=== PATIENT | male | born 1985 | race Caucasian/White ===

== ENCOUNTER 2018-03-14 16:14 | Emergency (ER) | payer MEDICAID, SELFPAY ==
[2018-03-14 16:41] VITALS: BP 113/73; PULSE 91; RESP 18; TEMP 36.7; O2SAT 98
--- NOTE | 2018-03-14 16:54 | W.ED.GENAD ---
Discharge Plan Disposition Patient Disposition: HOME Condition: Good Discharge Details Chief Complaint: DentalOral Clinical Impression: Dental infection Primary Care Provider: Nicola Jeffers ED Provider: Josh Lai Home Meds and New Rx's Prescriptions: New azithromycin 250 mg tablet 250 mg PO DAILY Qty: 4 RF: 0 Continue hydrocodone-acetaminophen 1 EACH tablet 1 ea PO QID PRN Qty: 15 RF: 0 Discontinued penicillin V potassium 500 MG tablet 500 mg PO TID RF: 0 Discharge Instructions Additional Instructions: follow up with your dentist as scheduled if you have pain take 1000mg tylenol and 600mg ibuprofen every 6 hours if you have difficulty breathing or inability to swallow liquids return to the emergency department Discharge Data Discharge Physician: Josh Lai Medical Decision Making 32 yo male with hx of prior dental infections and has had numerous teeth extracted and is due to have remaining teeth extracted next week comes in with cc of right lower gum pain where he had prior extractions. Denies fevers, difficulty swallowing or breathing. HAs no abscess on exam and no pain over hyoid, no submandibular swelling and no restricted neck movements, no findings to indicated ludwigs, pharyngitis, rpa, sea captain, epiglotitis. Will start azithromycin (discussed at length normally pcn or clindamycin is indicated but he states azithromycin is the medicine he is always given and only one that treats his infections). HE has f/u next week with his dentist, return precautions given Differential Diagnosis abscess, pulpitis HPI General Mode of arrival: ambulatory. Date/Time Provider Initiated Documentation: 03/14/18 16:47. Limitations to Documentation: no limitations. Information obtained by: patient. History of Present Illness 32 year old M presents to the emergency department with the chief complaint of right lower gum pain, Patient started experiencing this day(s) (3) and it has been constant. No relieving factors improve symptom(s), No exacerbating factors reported . Patient did receive the following treatments prior to arrival, none Related Data Home Medications Medication Instructions Recorded Confirmed hydrocodone-acetaminophen 1 ea PO QID PRN #15 tablet 10/04/13 azithromycin 250 mg PO DAILY #4 tab 03/14/18 Previous Rx's Medication Instructions Recorded hydrocodone-acetaminophen 1 ea PO QID PRN #15 tablet 10/04/13 azithromycin 250 mg PO DAILY #4 tab 03/14/18 Allergies Allergy/AdvReac Type Severity Reaction Status Date / Time No Known Allergies Allergy Unverified 10/04/13 21:50 General Stated Complaint: DentalOral ABDOULAYE: 4 Review of Systems Review of Systems All systems reviewed & are unremarkable except as noted in HPI and below Constitutional Denies chills and Denies fever(s) Eyes Denies eye discharge ENT Denies nasal congestion Cardiovascular Denies dyspnea Respiratory Denies dyspnea Gastrointestinal Denies vomiting Musculoskeletal Denies joint swelling Integumentary/Breasts Denies rash Hematologic/Lymphatic Denies easy bleeding PFSH Social History Smoking/Tobacco Use Status: Current every day Exam Const General: no acute distress Orientation: alert HENMT Head: normal to inspection Ears: external ears normal General nose exam: external nose normal Mouth: moist mucous membranes Eyes General: appearance normal, both eyes and all related structures Neck Neck: normal visual inspection Resp Effort & Inspection: normal respiratory effort and able to speak in complete sentences Cardio Rate: regular rate Skin General skin exam: no rashes or lesions noted Neuro General: alert and oriented x3 Extrem General: normal to inspection Psych Mental Status: mental status grossly normal Course Vital Signs Temperature 36.7 C 03/14/18 16:41 Pulse 91 H 03/14/18 16:41 Respiratory Rate 18 03/14/18 16:41 Blood Pressure 113/73 03/14/18 16:41 Pulse Oximetry 98 03/14/18 16:41 Temperature 36.7 C 03/14/18 16:41 Temperature Source Temporal Artery Scan 03/14/18 16:41 Pulse 91 H 03/14/18 16:41 Respiratory Rate 18 03/14/18 16:41 Respiratory Effort Labored 03/14/18 16:46 Blood Pressure 113/73 03/14/18 16:41 Blood Pressure Position Sitting 03/14/18 16:41 Pulse Oximetry 98 03/14/18 16:41 Oxygen Delivery Method Room Air 03/14/18 16:41 Oxygen Flow Rate 0 03/14/18 16:41 Pain Level 10 03/14/18 16:41
--- NOTE | 2018-03-14 16:57 | ED.GENADUL_ITS ---
Discharge Plan Disposition Patient Disposition: HOME Condition: Good Discharge Details Chief Complaint: DentalOral Clinical Impression: Dental infection Primary Care Provider: Nicola Jeffers ED Provider: Josh Lai Home Meds and New Rx's Prescriptions: New azithromycin 250 mg tablet 250 mg PO DAILY Qty: 4 RF: 0 Continue hydrocodone-acetaminophen 1 EACH tablet 1 ea PO QID PRN Qty: 15 RF: 0 Discontinued penicillin V potassium 500 MG tablet 500 mg PO TID RF: 0 Discharge Instructions Additional Instructions: follow up with your dentist as scheduled if you have pain take 1000mg tylenol and 600mg ibuprofen every 6 hours if you have difficulty breathing or inability to swallow liquids return to the emergency department Discharge Data Discharge Physician: Josh Lai Medical Decision Making 32 yo male with hx of prior dental infections and has had numerous teeth extracted and is due to have remaining teeth extracted next week comes in with cc of right lower gum pain where he had prior extractions. Denies fevers, difficulty swallowing or breathing. HAs no abscess on exam and no pain over hyoid, no submandibular swelling and no restricted neck movements, no findings to indicated ludwigs, pharyngitis, rpa, correctional officer captain, epiglotitis. Will start azithromycin (discussed at length normally pcn or clindamycin is indicated but he states azithromycin is the medicine he is always given and only one that treats his infections). HE has f/u next week with his dentist, return precautions given Differential Diagnosis abscess, pulpitis HPI General Mode of arrival: ambulatory . Date/Time Provider Initiated Documentation: 03/14/18 16:47 . Limitations to Documentation: no limitations . Information obtained by: patient . History of Present Illness 32 year old M presents to the emergency department with the chief complaint of right lower gum pain, Patient started experiencing this day(s) (3) and it has been constant. No relieving factors improve symptom(s), No exacerbating factors reported . Patient did receive the following treatments prior to arrival, none Related Data Home Medications Medication Instructions Recorded Confirmed hydrocodone-acetaminophen 1 ea PO QID PRN #15 tablet 10/04/13 azithromycin 250 mg PO DAILY #4 tab 03/14/18 Previous Rx's Medication Instructions Recorded hydrocodone-acetaminophen 1 ea PO QID PRN #15 tablet 10/04/13 azithromycin 250 mg PO DAILY #4 tab 03/14/18 Allergies Allergy/AdvReac Type Severity Reaction Status Date / Time No Known Allergies Allergy Unverified 10/04/13 21:50 General Stated Complaint: DentalOral ABDOULAYE: 4 Review of Systems Review of Systems All systems reviewed & are unremarkable except as noted in HPI and below Constitutional Denies chills and Denies fever(s) Eyes Denies eye discharge ENT Denies nasal congestion Cardiovascular Denies dyspnea Respiratory Denies dyspnea Gastrointestinal Denies vomiting Musculoskeletal Denies joint swelling Integumentary/Breasts Denies rash Hematologic/Lymphatic Denies easy bleeding PFSH Social History Smoking/Tobacco Use Status: Current every day Exam Const General: no acute distress Orientation: alert HENMT Head: normal to inspection Ears: external ears normal General nose exam: external nose normal Mouth: moist mucous membranes Eyes General: appearance normal, both eyes and all related structures Neck Neck: normal visual inspection Resp Effort & Inspection: normal respiratory effort and able to speak in complete sentences Cardio Rate: regular rate Skin General skin exam: no rashes or lesions noted Neuro General: alert and oriented x3 Extrem General: normal to inspection Psych Mental Status: mental status grossly normal Course Vital Signs Temperature 36.7 C 03/14/18 16:41 Pulse 91 H 03/14/18 16:41 Respiratory Rate 18 03/14/18 16:41 Blood Pressure 113/73 03/14/18 16:41 Pulse Oximetry 98 03/14/18 16:41 Temperature 36.7 C 03/14/18 16:41 Temperature Source Temporal Artery Scan 03/14/18 16:41 Pulse 91 H 03/14/18 16:41 Respiratory Rate 18 03/14/18 16:41 Respiratory Effort Labored 03/14/18 16:46 Blood Pressure 113/73 03/14/18 16:41 Blood Pressure Position Sitting 03/14/18 16:41 Pulse Oximetry 98 03/14/18 16:41 Oxygen Delivery Method Room Air 03/14/18 16:41 Oxygen Flow Rate 0 03/14/18 16:41 Pain Level 10 03/14/18 16:41
[2018-03-14] MEDS: Azithromycin 250 MG TAB 500 MG PO (17:15)
== END 2018-03-14 17:16 | disposition home or self-care (01) ==
LOC: ER 17:30
PROVIDERS: Emergency Provider Emergency Medicine; PCP Family Medicine
DX: K04.7 Periapical abscess without sinus (principal)
CPT/HCPCS: 99283

== ENCOUNTER 2020-06-11 17:34 | Emergency (ER) | payer MEDICAID, SELFPAY ==
[2020-06-11 17:39] VITALS: BP 141/83; PULSE 105; TEMP 36.6; O2SAT 99
--- NOTE | 2020-06-11 17:49 | ED.GENADUL_ITS ---
Discharge Plan Disposition Patient Disposition: HOME Condition: Stable Discharge Details Clinical Impression: Pain in testicle Primary Care Provider: Nicola Jeffers ED Provider: Suzanna Gambino Home Meds and New Rx's Prescriptions: New doxycycline hyclate 100 mg tablet 100 mg PO BID Qty: 14 RF: 0 Continued methadone 10 mg/mL Syringe 110 mg PO DAILY RF: 0 Discharge Instructions Instructions: Epididymitis (ED) Additional Instructions: As your pain is the same as when you have had epididymitis historically, we will treat you for the same once again. This time, please take the entire course of your antibiotics. You received 500 mg of ceftriaxone here. Please take the 1 week of doxycycline as prescribed. I have also ordered an outpatient ultrasound. Please call tomorrow morning to schedule your ultrasound appointment. As you are unable to urinate today, I would also like for you to bring in a sample for further testing. Please bring in a sample from the first urination of the day. Please catch the first bit of urine that comes out of your penis and only fill to the line drawn. Please also contact your primary care to schedule follow-up appointment next week. If you develop fever/chills, increased pain, difficulty urinating, increased abdominal pain or other new/worsening symptoms please seek care urgently once again. Referrals: Nicola Jeffers [Primary Care Provider] - Discharge Data Discharge Date/Time-TO BE ENTERED AT DEPARTURE: 06/11/20 18:41 Medical Decision Making Patient is a pleasant 35-year-old gentleman presenting today with chief complaint of testicular discomfort. He reports that last summer he was diagnosed with epididymitis and was prescribed antibiotics. He reports that after having an IM injection of antibiotics and oral antibiotics he did feel much improved. However, he reports he did not finish at least half of the oral antibiotics. He states that since that time he has had some intermittent discomfort that feels similar but is been much more pronounced recently. He s tates the pain is primarily in the posterior aspect of the right testicle. He reports that when pain is maximal, such as when there is any type of pressure applied to the posterior aspect of his, the pain can radiate up into the right side of his groin and lower abdomen. He denies any nausea vomiting. Denies any dysuria, hematuria, increased frequency urgency. No change in bowel habits. States that this discomfort has limited him sexually recently. Denies any penile discharge. No new sexual contacts. His significant other was tested last summer when treated appropriately. On exam, patient has tenderness in the posterior aspect of the right testicle. Not appreciate any swelling. He has normal cremasteric reflex. He has no abdominal discomfort. No evidence to suggest incarcerated hernia. His exam and history is not consistent with testicular torsion. He is maximally tenderness posteriorly over the epididymis. Patient I discussed laboratory evaluation, ultrasound. He is declining this at this time. Prefer to be treated solely on his symptoms and his history. He is unable to give us a urinary sample today. He and I discussed risks associated with this not being diagnosed appropriately and that he will need follow-up closely to complete his evaluation that would have otherwise been performed today. He voiced understanding. Will treat based on the new CDC guidelines and will give 500 mg IM ceftriaxone as well as 1 week of doxycycline. Patient was given first dosing here. Ordered outpatient ultrasound. Have also requested dirty urine test for GC and chlamydia. Not see any evidence of herpes today. No findings suggest syphilis. Strict return precautions were discussed. I encouraged that he take the full course of antibiotic. All of his questions and concerns were addressed and he is in agreement with this plan. HPI General Mode of arrival: ambulatory . Date/Time Provider Initiated Documentation: 06/11/20 17:49 . Limitations to Documentation: no limitations . Information obtained by: patient and RN notes reviewed . History of Present Illness 35 year old M presents to the emergency department with the chief complaint of testicular pain, described as moderate and similar to prior episodes, with intensity rated at 4. Quality is described as aching, and is localized to the genitals and right. Patient abdomen (reports when pain is severe can radiate into his right lower abdomen). Patient started experiencing this week(s) (3) and it has been constant. Immobilization improves symptom(s), Movement worsens symptoms (pain maximal with pressure applied to posterior aspect of testicles) . Patient notes no other symptoms.. Patient did receive the following treatments prior to arrival, none Related Data Home Medications Medication Instructions Recorded Confirmed doxycycline hyclate 100 mg PO BID #14 tab 06/11/20 methadone 110 mg PO DAILY 06/11/20 06/11/20 Previous Rx's Medication Instructions Recorded doxycycline hyclate 100 mg PO BID #14 tab 06/11/20 Allergies Allergy/AdvReac Type Severity Reaction Status Date / Time No Known Allergies Allergy Unverified 06/11/20 17:43 General Stated Complaint: GenMedical ABDOULAYE: 3 Review of Systems Constitutional Constitutional: Reports as per HPI, Denies chills, Denies fatigue, Denies fever(s) and Denies headache(s) ENT Ears, Nose, Mouth, and Throat: Denies headache(s) Cardiovascular Cardiovascular: Reports as per HPI, Denies chest pain and Denies dyspnea Respiratory Respiratory: Reports as per HPI, Denies cough and Denies dyspnea Gastrointestinal Gastrointestinal: Reports as per HPI Genitourinary Genitourinary: Reports as per HPI, Denies hematuria, Denies oliguria, Denies difficulty urinating, Denies genital lesions, Denies dysuria, Reports scrotal swelling (reports feeling swollen in posterior right testicle), Denies testicular mass, Reports testicular pain, Denies urinary frequency, Denies urinary hesitancy and Denies urinary urgency Musculoskeletal Musculoskeletal: Reports as per HPI and Denies back pain Integumentary/Breasts Skin/Breast: Reports as per HPI and Denies rash Neurologic Neurologic: Reports as per HPI and Denies headache(s) Endocrine Endocrine: Denies fatigue [facility] Social History Smoking/Tobacco Use Status: Current every day Tobacco Type: cigarettes Smoking risk assessment performed?: Yes Alcohol Intake: never Drug use: Never Substance use type: does not use Do you feel safe at home: Yes Do you feel safe in your relationship?: Yes Exam Const General: cooperative, healthy appearing, comfortable, no acute distress and well developed Nutritional Appearance: average body habitus and well nourished Orientation: alert and awake [facility] Head: normal to inspection Mouth: moist mucous membranes Resp Effort & Inspection: normal respiratory effort, able to speak in complete sentences and no respiratory distress Auscultation: clear to auscultation bilaterally, no rales, no rhonchi and no wheezes Cardio Rate: regular rate Rhythm: regular rhythm Heart Sounds: S1 normal and S2 normal GI Inspection: normal to inspection, non-distended, no obesity, no visible herniation and no visible pulsation Palpation: soft, no hepatosplenomegaly, not firm, no guarding, no hernias, not rigid and nontender Percussion: normal to percussion Auscultation: normal bowel sounds Male General Exam: Yes normal external exam, No ecchymosis, No edema, No erythema, No hernia and No inguinal lymphadenopathy Penis: normal penis Meatus: meatus normal Scrotum: scrotum normal, cremasteric reflex present, no ecchymosis, not edematous, not erythematous, no hydroceles, no inguinal hernias, no masses and no scrotal swelling Testes: normal, testicular lie normal, epididymides normal, testicles not atrophic, no blue dot sign, not enlarged, no epididymal induration, no epidiymal masses, epididymal tenderness on the right, no masses, no testicular mass, no testicular swelling, no testicular tenderness, normal testicular lie and No testicular atrophy Back/Spine/Pelvis Back: no CVA tenderness Skin General skin exam: no rashes or lesions noted Trauma: no lacerations or abrasions Neuro General: patient alert and patient awake Cognition: normal cognition Speech: speech normal Gait: normal gait Psych Appearance: grossly normal and well kempt Mental Status: mental status grossly normal Speech and Movement: speech and movement normal Course Vital Signs Vital signs: Vital Signs Temperature 36.6 C 06/11/20 17:39 Pulse 105 H 06/11/20 17:39 Blood Pressure 141/83 H 06/11/20 17:39 Pulse Oximetry 99 06/11/20 17:39 Temperature 36.6 C 06/11/20 17:39 Temperature Source Temporal Artery Scan 06/11/20 17:39 Pulse 105 H 06/11/20 17:39 Respiratory Effort Non-Labored 06/11/20 17:42 Blood Pressure 141/83 H 06/11/20 17:39 Blood Pressure Position Sitting 06/11/20 17:39 Pulse Oximetry 99 06/11/20 17:39 Oxygen Delivery Method Room Air 06/11/20 17:39 Oxygen Flow Rate 0 06/11/20 17:39 Pain Level 4 06/11/20 17:39
[2020-06-11] MEDS: cefTRIAXone 500 MG VIAL IM (18:36)
== END 2020-06-11 18:41 | disposition home or self-care (01) ==
PROVIDERS: Emergency Provider Physician Assistant; PCP Family Medicine
DX: N50.811 Right testicular pain (principal)
CPT/HCPCS: 96372; 99284; 99283; J0696

== ENCOUNTER 2020-06-20 16:21 | Emergency (ER) | payer MEDICAID, SELFPAY ==
--- NOTE | 2020-06-20 16:56 | W.ED.GENAD ---
Discharge Plan Disposition Patient Disposition: HOME Condition: Stable Discharge Details Clinical Impression: Abdominal pain Primary Care Provider: Nicola Jeffers ED Provider: Fabiana Lazar Home Meds and New Rx's Prescriptions: New doxycycline hyclate 100 mg capsule 100 mg PO BID 10 Days Qty: 20 RF: 0 No Action methadone 10 mg/mL Syringe 110 mg PO DAILY RF: 0 Discharge Instructions Instructions: Abdominal Pain (ED) Additional Instructions: Follow up with primary care provider in 3-5 days. Return to ED sooner if any worsening or concerns. Increase oral fluids. Please return for any worsening pain. Problems urinating or any concerns. Take antibiotic as directed. Please call and make an appointment for the ultrasound as previously instructed. Stand Alone Forms: Work Release Referrals: Nicola Jeffers [Primary Care Provider] - Medical Decision Making Patient here with RLQ abd pain, seen here on 06-11-19 was given Ceftriaxone IM and 1 week of doxycycline. here requesting more antibiotics and shot of antibiotics. No n/v/d. Patient did not follow-up with ultrasound as previously instructed. He states he cannot give us a urine sample. Patient given prescription for doxycycline and I am injection of ceftriaxone. Discussed that I cannot rule out any other intra-abdominal pathology without further work-up which patient is declining at this time. Patient was not able to give us urine sample prior to being discharged. Instructed to follow-up with PCP and have ultrasound done as previously directed. HPI General Mode of arrival: ambulatory. Date/Time Provider Initiated Documentation: 06/20/20 16:53. Limitations to Documentation: no limitations. Information obtained by: patient. HPI Narrative: Patient here with RLQ abd pain, seen here on 06-11-19 was given Ceftriaxone IM and 1 week of doxycycline. here requesting more antibiotics and shot of antibiotics. No n/v/d. Patient did not follow-up with ultrasound as previously instructed. He states he cannot give us a urine sample. Related Data Home Medications Medication Instructions Recorded Confirmed methadone 110 mg PO DAILY 06/11/20 06/20/20 doxycycline hyclate 100 mg PO BID 10 Days #20 cap 06/20/20 Previous Rx's Medication Instructions Recorded doxycycline hyclate 100 mg PO BID 10 Days #20 cap 06/20/20 Allergies Allergy/AdvReac Type Severity Reaction Status Date / Time No Known Allergies Allergy Unverified 01/20/21 17:58 General ABDOULAYE: 3 Review of Systems Narrative: Constitutional: Negative for weight loss, alert and oriented, well groomed, normal body habitus, appears comfortable. HEENT: Denies trauma, headaches, blurry vision, nasal discharge, sore throat, trouble swallowing. Chest: Denies chest pain, palpitations, irregular rhythm, hypertension. Respiratory: Denies Shortness of breath, cough, hemoptysis. GI: Denies nausea, vomiting, diarrhea, constipation. Right lower quadrant abdominal pain. : Denies dysuria, hematuria, flank pain, rectal bleeding. History of epididymitis and testicle pain. Neuro: Denies dizziness, blurry vision, weakness, syncope, headache or facial numbness. Hematologic: Denies easy bruising, intolerance to heat or cold, hair loss. [facility] Social History Smoking/Tobacco Use Status: Current every day Tobacco Type: cigarettes Smoking risk assessment performed?: Yes Alcohol Intake: never Drug use: Never Substance use type: does not use Current gender identity: male Do you feel safe at home: Yes Do you feel safe in your relationship?: Yes Exam Narrative Exam Narrative: Constitutional: Alert and oriented x3. Appears stated age. Normal body habitus. Head: Normocephalic, no trauma. Eyes: Pupils PERRLA, Red reflex noted, EOM's intact. Eyelids symmetrical without lesions, discharge, or swelling. ENT: Bilateral TM's WNL, External ear normal to inspection, no mastoid TTP, swelling, or erythema, Nasal turbinates WNL, no nasal discharge. Normal dentition, Posterior pharynx WNL, no exudate. Chest: RRR, Normal S1, S2, distal pulses intact. Resp: Lungs clear to auscultation bilaterally, no wheezes, rales, or rhonchi. Abdomen: Soft, nondistended, nontender over McBurney's point, Musculoskeletal: Normal gait, 5/5 strength to all four extremities. Skin: No suspicious rashes or lesions. Capillary refill less than 2 sec. Neurologic: Cranial nerves II-XII intact. Alert and oriented x 3. DTR's intact. Hematologic/Lymphatic: No ecchymosis, no lymphadenopathy.
[2020-06-20 17:50] VITALS: BP 124/70; RESP 18; TEMP 36.9; O2SAT 95
[2020-06-20 18:00] VITALS: BP 119/66; PULSE 107; RESP 18; TEMP 37.1; O2SAT 96
[2020-06-20] MEDS: Doxycycline Hyclate 100 MG CAP PO (18:40)
[2020-06-20] MEDS: cefTRIAXone 500 MG VIAL IM (18:40)
[2020-06-20] MEDS: Doxycycline Hyclate 100 MG, 2 CAPS/BTL PO (18:48)
== END 2020-06-20 18:54 | disposition home or self-care (01) ==
PROVIDERS: Emergency Provider Registered Nurse Emergency; PCP Family Medicine
DX: R10.31 Right lower quadrant pain (principal)
CPT/HCPCS: 96372; 99284; 99283; J0696

== ENCOUNTER 2020-06-22 13:48 | Emergency (ER) | payer MEDICAID, SELFPAY ==
--- NOTE | 2020-06-22 13:45 | RT.EKG_ITS ---
APPROVED REPORT Exam: Resting ECG Patient Location: E HR:71 bpm ECG Measurements Heart Rate 71 AXIS NH 179 P 50 QRSd 106 QRS 78 QT 416 T 25 QTc 453 Conclusion Sinus rhythm...normal P axis, V-rate 60- 99 I have reviewed and interpreted ECG and agree with software generated interpretation. No stemi
[2020-06-22 13:53] VITALS: BP 134/86; PULSE 99; RESP 18; TEMP 36.6; O2SAT 99
--- NOTE | 2020-06-22 14:14 | W.ED.GENAD ---
Discharge Plan Disposition Patient Disposition: HOME Condition: Good Discharge Details Clinical Impression: Abdominal pain, epigastric Primary Care Provider: Nicola Jeffers ED Provider: Dianna Grimes Home Meds and New Rx's Prescriptions: New famotidine [Heartburn Relief (famotidine)] 20 mg tablet 20 mg PO DAILY Qty: 30 RF: 0 No Action methadone 10 mg/mL Syringe 110 mg PO DAILY RF: 0 doxycycline hyclate 100 mg capsule 100 mg PO BID 10 Days Qty: 20 RF: 0 Discharge Instructions Instructions: Epigastric Pain (ED) Additional Instructions: Bring your urine specimen to hospital lab as previously instructed Schedule your outpatient ultrasound Take Zantac for discomfort Instructions for taking doxycycline Return earlier with new or worsening complaints Stand Alone Forms: Work Release Discharge Data Discharge Date/Time-TO BE ENTERED AT DEPARTURE: 06/22/20 15:55 Medical Decision Making I considered pulmonary embolism, angina, pancreatitis, cholecystitis however patient's exam is benign, he has no new tenderness or current discomfort His troponin is negative and he has a heart score of 1 reassuring EKG without QTC conjugation rather than ischemia He was pain-free throughout this encounter in the entirety of the day He does not have any chest pain or shortness of breath He felt nauseous or vomiting Diagnostic labs are reassuring He will presents for his outpatient ultrasounds and present urinalysis He will continue on of antibiotics and return earlier should he have new or worsening complaints Symptoms are likely related to gastritis from his doxycycline He is instructed to eat food and take Zantac while on this medication He is given a threshold to return with a worsening complaints Is discharged home in stable condition with stable vital He is PERC negative His exam today does not warrant imaging His testicular pain has resolved reportedly Lab Data Lab results reviewed: Yes I reviewed the patient's lab results. ECG Data Attestation: I personally reviewed and interpreted this ECG (s) as follows: Interpretation: Please see attending EKG interpretation HPI 35-year-old gentleman presents with report of epigastric pain. Patient states he had been on doxycycline for the past 10 days for suspected epididymitis. He states that he is feeling improved in terms of his right testicular pain but reports some epigastric pain. He denies any chest pain or shortness of breath. He denies dizziness or weakness. He has never used IV drugs. He states he is not snorted heroin for the past year since he been on methadone. He denies any additional new medications. He is currently asymptomatic per patient. Was going to try taking Tums however he was concerned with combining this with doxycycline General Date/Time Provider Initiated Documentation: 06/22/20 13:56. Related Data Home Medications Medication Instructions Recorded Confirmed methadone 110 mg PO DAILY 06/11/20 06/22/20 doxycycline hyclate 100 mg PO BID 10 Days #20 cap 06/20/20 06/22/20 famotidine [Heartburn Relief 20 mg PO DAILY #30 tab 06/22/20 (famotidine)] Previous Rx's Medication Instructions Recorded doxycycline hyclate 100 mg PO BID 10 Days #20 cap 06/20/20 famotidine [Heartburn Relief 20 mg PO DAILY #30 tab 06/22/20 (famotidine)] Allergies Allergy/AdvReac Type Severity Reaction Status Date / Time No Known Allergies Allergy Unverified 06/22/20 13:58 General Stated Complaint: Chest Pain ABDOULAYE: 3 Review of Systems Narrative: Review of systems negative x7 aside from where indicated in HPI [facility] Social History Smoking/Tobacco Use Status: Current every day Tobacco Type: cigarettes Smoking risk assessment performed?: Yes Alcohol Intake: never Drug use: Never Substance use type: does not use Current gender identity: male Do you feel safe at home: Yes Do you feel safe in your relationship?: Yes Exam Const General: healthy appearing Chest Chest: normal inspection of the chest Resp Effort & Inspection: normal respiratory effort Auscultation: clear to auscultation bilaterally Cardio Rate: regular rate Rhythm: regular rhythm GI Inspection: normal to inspection Other: No tenderness with palpation in all 4 quadrants No abdominal bruit or pulsatile mass No CVA tenderness Skin General skin exam: no rashes or lesions noted Neuro General: patient alert Extrem Other: No calf tenderness or swelling Distal pulses intact Course Vital Signs Vital signs: Vital Signs Temperature 36.6 C 06/22/20 13:53 Pulse 99 H 06/22/20 13:53 Respiratory Rate 18 06/22/20 13:53 Blood Pressure 134/86 06/22/20 13:53 Pulse Oximetry 99 06/22/20 13:53 Temperature 36.6 C 06/22/20 13:53 Temperature Source Skin 06/22/20 13:53 Pulse 99 H 06/22/20 13:53 Respiratory Rate 18 06/22/20 13:53 Respiratory Effort Non-Labored 06/22/20 13:59 Blood Pressure 134/86 06/22/20 13:53 Blood Pressure Position Supine 06/22/20 13:53 Pulse Oximetry 99 06/22/20 13:53 Oxygen Delivery Method Room Air 06/22/20 13:53 Oxygen Flow Rate 0 06/22/20 13:53 Pain Level 2 06/22/20 13:53
[2020-06-22 14:25] LABS: Abs Immature Grans 0.05 10^3/uL (0.0-0.06); Absolute Basophil Count 0.07 10^3/uL (0.0-0.2); Absolute Eosinophil Count 0.28 10^3/uL (0.0-0.7); Absolute Lymphocyte Count 4.13 10^3/uL (1.2-3.4); Absolute Monocyte Count 0.79 10^3/uL (0.1-0.8); Absolute Neutrophil Count 3.99 10^3/uL (1.2-6.7); Basophils % 0.8; HCT 37.5 % (40.0-50.0); HGB 12.6 g/dL (13.5-17.5); Immature Grans % 0.5; Lymphocytes % 44.4; MCH 29.9 pg (27.0-33.0); MCHC 33.6 % (32.0-36.0); MCV 89.1 fL (80-95); MPV 9.6 fL (8.0-11.0); Monocytes % 8.5; Neutrophils % 42.8; Nucleated RBC 0 %; Platelet Count 217 10^3/uL (130-400); RBC 4.21 10^6/uL (4.36-5.78); RDW 13.3 % (11.8-14.1); RDW-SD 43.7 fL; WBC 9.31 10^3/uL (4.4-10.8)
[2020-06-22 14:45] VITALS: BP 122/74; PULSE 101; RESP 14
[2020-06-22 15:16] LABS: ALT 85 U/L (16-63); AST 37 U/L (15-37); Albumin 3.4 g/dL (3.4-5.0); Alkaline Phosphatase 99 U/L (46-116); Anion Gap 5.6 mmol/L (3-11); BUN 18 mg/dL (7-18); Bilirubin, Total 0.2 mg/dL (0.2-1.0); CO2 29.4 mmol/L (21.0-32.0); CREATININE 0.88 mg/dL (0.70-1.30); Calcium 8.5 mg/dL (8.5-10.1); Chloride 107 mmol/L (98-107); Glucose 115 mg/dL (74-106); Potassium 3.6 mmol/L (3.5-5.1); Sodium 142 mmol/L (136-145); Total Protein 6.7 g/dL (6.4-8.2); Troponin I < 0.05 ng/mL (<0.06)
[2020-06-22 15:23] LABS: Lipase 90 U/L (73-393)
[2020-06-22 15:54] VITALS: BP 133/82; PULSE 80; RESP 16; TEMP 36.6; O2SAT 95
[2020-06-23 08:15] LABS: Bilirubin Negative (Negative); Blood Negative (Negative); Clarity Clear (Clear); Glucose Negative (Negative); Ketones Negative (Negative); Leukocyte Esterase Negative (Negative); Nitrite Negative (Negative); Specific Gravity 1.025 (1.005-1.025); Urobilinogen 0.2 EU/dL (Up TO 0.2)
== END 2020-06-22 15:55 | disposition home or self-care (01) ==
PROVIDERS: Emergency Provider Physician Assistant; PCP Family Medicine
DX: R10.13 Epigastric pain (principal); T36.4X5A Adverse effect of tetracyclines, initial encounter
CPT/HCPCS: 36415; 80053; 83690; 93005; 99284; 81003; 84484; 85025; 93010

== ENCOUNTER 2020-07-10 10:48 | Outpatient (CLI) | payer MEDICAID, SELFPAY | END 2020-07-10 11:08 | PROVIDERS: PCP Family Medicine; Visit Provider Physician Assistant | DX: R69 Illness, unspecified (principal) ==

== ENCOUNTER 2020-08-02 16:43 | Emergency (ER) | payer MEDICAID, SELFPAY ==
[2020-08-02 16:56] VITALS: BP 121/73; PULSE 85; RESP 18; TEMP 36.6; O2SAT 98
--- NOTE | 2020-08-02 17:14 | W.ED.GENAD ---
Discharge Plan Disposition Patient Disposition: HOME Condition: Stable Discharge Details Clinical Impression: Pain in right testicle Primary Care Provider: Nicola Jeffers ED Provider: Fabiana Lazar Home Meds and New Rx's Prescriptions: Continued methadone 10 mg/mL Syringe 130 mg PO DAILY RF: 0 famotidine [Heartburn Relief (famotidine)] 20 mg tablet 20 mg PO DAILY Qty: 30 RF: 0 Discharge Instructions Instructions: Testicle Pain (ED) Additional Instructions: Today the urinalysis is largely within normal limits, you were tested for gonorrhea chlamydia will take 48 to 72 hours to return. The comes back positive and you need to be on an antibiotic we will call you. Please return for a scrotum ultrasound outpatient ultrasound was ordered. At this time there is no indication for you to be placed on antibiotics. Follow up with primary care provider in 3-5 days. Return to ED sooner if any worsening or concerns. Increase oral fluids. Please take Tylenol or Ibuprofen with food every 4-6 hours as needed for pain and swelling. Stand Alone Forms: Work Release Referrals: Nicola Jeffers [Primary Care Provider] - Medical Decision Making 35-year-old male presents to the ED with chief complaint of right testicle pain which radiates up into his right groin which has been on and off for over 1 to 2 months. He was seen in the ED couple times in June for similar complaint. He states that he has a past medical history of epididymitis and he is sure that this is what that is. He does have a primary care provider but has not seen her for this problem. He says that he was originally diagnosed with epididymitis at the [facility]. He denies any penile discharge, dysuria, penile lesions. He denies any nausea vomiting diarrhea or abdominal pain. Urinalysis and urine GC chlamydia ordered and discussed with patient, verbalized understanding of plan of care. At this time ultrasound is not available. No evidence of UTI at this time GC chlamydia is pending. Outpatient ultrasound ordered form and instructions given to patient who verbalizes understanding. At this time there is no indication for antibiotics I instructed patient to follow-up with his PCP to have the ultrasound completed. He remained hemodynamically stable, alert and oriented throughout stay. This text was generated using buySAFEation system, please disregard any oddities of phrase or misspellings. HPI General Mode of arrival: ambulatory. Date/Time Provider Initiated Documentation: 08/02/20 16:58. Limitations to Documentation: no limitations. Information obtained by: patient. HPI Narrative: 35-year-old male presents to the ED with chief complaint of right testicle pain which radiates up into his right groin which has been on and off for over 1 to 2 months. He was seen in the ED couple times in June for similar complaint. He states that he has a past medical history of epididymitis and he is sure that this is what that is. He does have a primary care provider but has not seen her for this problem. He says that he was originally diagnosed with epididymitis at the [facility]. He denies any penile discharge, dysuria, penile lesions. He denies any nausea vomiting diarrhea or abdominal pain. Related Data Home Medications Medication Instructions Recorded Confirmed methadone 130 mg PO DAILY 06/11/20 08/02/20 famotidine [Heartburn Relief 20 mg PO DAILY #30 tab 06/22/20 08/02/20 (famotidine)] Previous Rx's Medication Instructions Recorded famotidine [Heartburn Relief 20 mg PO DAILY #30 tab 06/22/20 (famotidine)] Allergies Allergy/AdvReac Type Severity Reaction Status Date / Time No Known Allergies Allergy Unverified 08/02/20 17:00 General Stated Complaint: Male Reproductive Problem ABDOULAYE: 4 Review of Systems Narrative: Constitutional: Negative for weight loss, alert and oriented, normal body habitus, appears comfortable. HEENT: Denies trauma, headaches, blurry vision, nasal discharge, sore throat, trouble swallowing. Chest: Denies chest pain, palpitations, irregular rhythm, hypertension. Respiratory: Denies Shortness of breath, cough, hemoptysis. GI: Denies abdominal pain, nausea, vomiting, diarrhea, constipation. : Denies dysuria, hematuria, flank pain, rectal bleeding. Reports right testicular pain and right groin pain. Neuro: Denies dizziness, blurry vision, weakness, syncope, headache or facial numbness. Hematologic: Denies easy bruising, intolerance to heat or cold, hair loss. [facility] Social History Smoking/Tobacco Use Status: Current every day Tobacco Type: cigarettes Smoking risk assessment performed?: Yes Alcohol Intake: never Drug use: Never Substance use type: does not use Current gender identity: male Do you feel safe at home: Yes Do you feel safe in your relationship?: Yes Exam Narrative Exam Narrative: Constitutional: Alert and oriented x3. Appears stated age. Normal body habitus. Head: Normocephalic, no trauma. Eyes: Pupils PERRLA, Red reflex noted, EOM's intact. Eyelids symmetrical without lesions, discharge, or swelling. ENT: Bilateral TM's WNL, External ear normal to inspection, no mastoid TTP, swelling, or erythema, Nasal turbinates WNL, no nasal discharge. Normal dentition, Posterior pharynx WNL, no exudate. Chest: RRR, Normal S1, S2, distal pulses intact. Resp: Lungs clear to auscultation bilaterally, no wheezes, rales, or rhonchi. Abdominal: Soft, nondistended, nontender to palpation all 4 quadrants. Genitourinary: No palpable inguinal hernia, right testicle is tender to palpation, no evidence of torsion, intact cremasteric reflex, no observable penile lesions or discharge at the meatus. Musculoskeletal: Normal gait, 5/5 strength to all four extremities. Skin: No suspicious rashes or lesions. Capillary refill less than 2 sec. Neurologic: Cranial nerves II-XII intact. Alert and oriented x 3. DTR's intact. Hematologic/Lymphatic: No ecchymosis, no lymphadenopathy. Course Vital Signs Vital signs: Vital Signs Temperature 36.6 C 08/02/20 16:56 Pulse 85 08/02/20 16:56 Respiratory Rate 18 08/02/20 16:56 Blood Pressure 121/73 08/02/20 16:56 Pulse Oximetry 98 08/02/20 16:56 Temperature 36.6 C 08/02/20 16:56 Temperature Source Temporal Artery Scan 08/02/20 16:56 Pulse 85 08/02/20 16:56 Respiratory Rate 18 08/02/20 16:56 Respiratory Effort Non-Labored 08/02/20 17:01 Blood Pressure 121/73 08/02/20 16:56 Pulse Oximetry 98 08/02/20 16:56 Oxygen Delivery Method Room Air 08/02/20 16:56 Oxygen Flow Rate 0 08/02/20 16:56 Pain Level 4 08/02/20 16:56
[2020-08-02 18:06] LABS: Bilirubin Negative (Negative); Blood Negative (Negative); Clarity Clear (Clear); Glucose Negative (Negative); Ketones Negative (Negative); Leukocyte Esterase Negative (Negative); Nitrite Negative (Negative); Specific Gravity 1.025 (1.005-1.025); Urobilinogen 0.2 EU/dL (Up TO 0.2)
[2020-08-06 15:26] LABS: Chlamydia Result Negative (Negative); GC Result Negative (Negative)
== END 2020-08-02 19:04 | disposition home or self-care (01) ==
PROVIDERS: Emergency Provider Registered Nurse Emergency; PCP Family Medicine
DX: N50.811 Right testicular pain (principal)
CPT/HCPCS: 87491; 87591; 99283; 81003; 99282

== ENCOUNTER 2020-08-06 02:09 | Outpatient (CLI) | payer MEDICAID, SELFPAY ==
--- NOTE | 2020-08-06 | DI.US_ITS ---
EXAM: US SCROTUM CLINICAL HISTORY: RT TESTICLE PAIN, ? EPIDIDIMYTIS. TECHNIQUE: Scrotal ultrasound performed using grayscale, color-flow and spectral Doppler analysis. COMPARISON: No exams were available for comparison FINDINGS: Right testicle: 3.6 x 2.3 x 3.1 cm Left testicle: 3.1 x 1.6 x 2.6 cm Echogenicity: Normal. Contour: Smooth. Mass: None seen. Microlithiasis: None. Hydrocele: Small bilateral hydroceles Variocele: None. Hernia: Small fatty containing right inguinal hernia with neck diameter of 1.5 cm. No peristalsing b owel loop identified. Epididymis: Left normal. 9 millimeter cyst in the head of the right epididymis. DOPPLER: Color: Symmetric and uniform, no hyperemia. Duplex: Bilateral testicular arterial waveforms visualized. IMPRESSION: Normal appearing bilateral testicles. Small bilateral hydroceles. Cyst in the head of the right epid idymis. No evidence of epididymitis. Question of small fatty containing right inguinal hernia. DATA REPOSITORY:
== END 2020-08-06 02:29 ==
PROVIDERS: PCP Family Medicine; Visit Provider Registered Nurse Emergency
DX: N50.811 Right testicular pain (principal); N50.3 Cyst of epididymis; N43.2 Other hydrocele; K40.90 Unilateral inguinal hernia, without obstruction or gangrene, not specified as recurrent
CPT/HCPCS: 76870

== ENCOUNTER 2020-08-15 11:09 | Emergency (ER) | payer MEDICAID, SELFPAY ==
--- NOTE | 2020-08-15 11:14 | W.ED.GENAD ---
Discharge Plan Disposition Patient Disposition: HOME Condition: Stable Discharge Details Clinical Impression: Abdominal pain, History of inguinal hernia Primary Care Provider: Nicola Jeffers ED Provider: Tram Sharma Home Meds and New Rx's Prescriptions: Continued methadone 10 mg/mL Syringe 130 mg PO DAILY RF: 0 Discharge Instructions Instructions: Inguinal Hernia (ED), Abdominal Pain (ED) Additional Instructions: Drink plenty of fluids and get plenty of rest. Alternate tylenol and motrin as needed and directed for pain. Avoid heavy lifting greater than 10 pounds until follow-up with general surgery. Use proper body mechanics with bending at the knees rather than bending forward. Follow-up with your scheduled appointment with your primary care doctor on Thursday and for referral to general surgery for further evaluation of your inguinal hernia. Return immediately to the emergency department if you develop any worsening or new concerning symptoms. Stand Alone Forms: Work Release Referrals: Layla Pena MD [ [facility] STAFF PHYSICIAN] - Discharge Data Discharge Physician: Tram Sharma Medical Decision Making 35-year-old male with a previous history of narcotic drug abuse currently on methadone with a recently diagnosed fat-containing small right inguinal hernia presents for work note as he states he has been unable to lift heavy furniture at work due to concern of his right flank pain associated with this hernia and not wanting to worsen his pain. Blood pressure mildly hypertensive. Remainder of vitals within normal limits. He appears nontoxic and comfortable. His abdomen is soft and obese with minimal right lower quadrant tenderness. He denies any testicular pain. Patient states he does not want any ED evaluation including labs or imaging and states he is only here for a work note. Patient with at x100 pounds of pressure at a time and he is concerned about worsening hernia. He states he has an appoint with his primary care doctor on Thursday for evaluation of this. Patient was also given surgery follow-up information if he can directly follow-up with them or for referral for his PCP. Patient advised that his current symptoms may be due to his hernia but other possibilities include appendicitis, diverticulitis, etc. He appears nontoxic and comfortable. He was advised to return here immediately if he has any worsening or new concerning symptoms. Patient also requested an evaluation of his right ear. He states he has had chronic intermittent right ear fullness for the past several years and states this pressure and fullness returned a few weeks ago. He states he is mainly concerned about wax in his ear or a severe ear infection. Examination of his right ear notes that there is no cerumen within the canal and the TM is dull and minimally erythematous. There is no effusion. Presentation not consistent with otitis externa. Patient does not want steroids or antibiotics at this time. He is edentulous. Advised that he also talked to his primary care doctor for referral to ENT if his symptoms do not improve or worsen. Usual and customary return precautions given prior to discharge. Medical Records Medical records reviewed: Yes I reviewed the patient's medical records. HPI General Date/Time Provider Initiated Documentation: 08/15/20 11:11. HPI Narrative: Patient is a 35-year-old male with a previous history of narcotic abuse currently on methadone with a recently diagnosed small fat-containing hernia on scrotal ultrasound presents for work note for inability to perform his job accurately at work due to persistent right groin and lower abdominal pain. Patient states he has a follow-up appoint with his primary care doctor on Thursday for this hernia. Patient states he has not here for an ED evaluation and does not want lab work or imaging. Patient was seen here recently for testicular pain and had an outpatient scrotal ultrasound which noted normal testicles bilaterally but also noted a small fat-containing right inguinal hernia. He states he has been having right groin pain for the past several years that comes and goes. 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 He states he has been able to eat normally and denies any fever, nausea, vomiting, urinary symptoms or change in bowel habits. He denies any testicular pain at this time. He states his right groin pain is tolerable and does not want any further evaluation of this at this time but was sent here by his primary care doctor for a work note as he states he cannot lift heavy furniture at work due to the pain and does not want to cause any worsening of his hernia. Related Data Home Medications Medication Instructions Recorded Confirmed methadone 130 mg PO DAILY 06/11/20 08/15/20 Allergies Allergy/AdvReac Type Severity Reaction Status Date / Time No Known Allergies Allergy Unverified 08/02/20 17:00 General ABDOULAYE: 4 Review of Systems All systems reviewed & are unremarkable except as noted in HPI and below Constitutional Constitutional: Reports as per HPI, Denies chills and Denies fever(s) Eyes Eyes: Denies blurry vision ENT Ears, Nose, Mouth, and Throat: Denies dizziness, Denies sore throat and Denies throat swelling Cardiovascular Cardiovascular: Denies chest pain and Denies dyspnea Respiratory Respiratory: Denies cough and Denies dyspnea Gastrointestinal Gastrointestinal: Reports abdominal pain, Denies diarrhea and Denies vomiting Genitourinary Genitourinary: Denies hematuria and Denies dysuria Musculoskeletal Musculoskeletal: Denies back pain and Denies numbness Integumentary/Breasts Skin/Breast: Denies lesions and Denies rash Neurologic Neurologic: Denies dizziness, Denies localized weakness and Denies numbness Allergic/Immunologic Allergic/Immunologic: Denies throat swelling [facility] Medical History (Updated 08/15/20 @ 11:48 by Tram Sharma DO) Inguinal hernia Surgical History (Updated 08/15/20 @ 11:40 by Tram Sharma DO) No significant past surgical history Social History Smoking/Tobacco Use Status: Current every day Tobacco Type: cigarettes Smoking risk assessment performed?: Yes Alcohol Intake: never Drug use: Never Substance use type: does not use Current gender identity: male Do you feel safe at home: Yes Do you feel safe in your relationship?: Yes Exam Const General: cooperative, healthy appearing and no acute distress HENMT Head: normal to inspection Face and sinus: normal facial exam Eyes General: appearance normal, both eyes and all related structures Pupils: PERRL EOM: EOM intact bilaterally Neck Neck: normal visual inspection and No submandibular swelling Lymphatic: no lymphadenopathy noted Chest Chest: normal inspection of the chest and no tenderness Resp Effort & Inspection: normal respiratory effort and able to speak in complete sentences Auscultation: clear to auscultation bilaterally Cardio Rate: regular rate Rhythm: regular rhythm GI Inspection: obesity Palpation: soft, not firm, not rigid and tender (Minimal right lower quadrant. No palpable defect) Auscultation: normal bowel sounds Skin General skin exam: no rashes or lesions noted Neuro General: patient alert, patient awake and patient oriented x3 Cognition: normal cognition Speech: speech normal Motor: muscle tone normal throughout Sensory Exam: no sensory deficits noted Extrem General: normal to inspection, full ROM, capillary refill normal, no calf tenderness bilaterally and no edema Psych Appearance: grossly normal Mental Status: mental status grossly normal Speech and Movement: speech and movement normal Affect: normal affect
[2020-08-15 11:16] VITALS: BP 146/73; PULSE 85; TEMP 36.8; O2SAT 96
== END 2020-08-15 12:02 | disposition home or self-care (01) ==
PROVIDERS: Emergency Provider Physician Assistant; PCP Family Medicine
DX: K40.90 Unilateral inguinal hernia, without obstruction or gangrene, not specified as recurrent (principal); R10.31 Right lower quadrant pain
CPT/HCPCS: 99282

== ENCOUNTER 2020-08-23 00:14 | Outpatient (REF) | payer MEDICAID, SELFPAY ==
[2020-08-23 16:37] LABS: Iron 144 ug/dL (65-175); Total Iron Binding Capacity 360 ug/dL (250-450); Transferrin Sat 40 % (20-55)
[2020-08-23 16:43] LABS: Abs Immature Grans 0.05 10^3/uL (0.0-0.06); Absolute Basophil Count 0.07 10^3/uL (0.0-0.2); Absolute Eosinophil Count 0.27 10^3/uL (0.0-0.7); Absolute Monocyte Count 0.81 10^3/uL (0.1-0.8); Absolute Neutrophil Count 5.95 10^3/uL (1.2-6.7); Basophils % 0.7; Eosinophils % 2.5; HGB 14.3 g/dL (13.5-17.5); Immature Grans % 0.5; Lymphocytes % 32.9; MCH 29.5 pg (27.0-33.0); MCHC 32.5 % (32.0-36.0); MCV 90.9 fL (80-95); MPV 10.5 fL (8.0-11.0); Monocytes % 7.6; Neutrophils % 55.8; Nucleated RBC 0 %; Platelet Count 249 10^3/uL (130-400); RBC 4.84 10^6/uL (4.36-5.78); RDW 12.6 % (11.8-14.1); RDW-SD 41.7 fL; WBC 10.65 10^3/uL (4.4-10.8)
[2020-08-23 17:15] LABS: Hemoglobin A1C 5.4 % (<5.7)
[2020-08-23 22:02] LABS: ALT 109 U/L (16-63); AST 49 U/L (15-37); Albumin 3.9 g/dL (3.4-5.0); Alkaline Phosphatase 88 U/L (46-116); Anion Gap 8.5 mmol/L (3-11); BUN 19 mg/dL (7-18); Bilirubin, Total 0.3 mg/dL (0.2-1.0); C-Reactive Protein 0.56 mg/dL (0.0-0.3); CO2 29.5 mmol/L (21.0-32.0); Calcium 9.4 mg/dL (8.5-10.1); Chloride 103 mmol/L (98-107); Glucose 92 mg/dL (74-106); Potassium 4.2 mmol/L (3.5-5.1); Sodium 141 mmol/L (136-145); Total Protein 7.5 g/dL (6.4-8.2)
[2020-08-23 22:14] LABS: Calculated LDL 135 mg/dL (<100); Cholesterol 205 mg/dL (<200); HDL Cholesterol 41 mg/dL (40-60); Triglyceride 148 mg/dL (<150)
== END 2020-08-23 00:15 | disposition home or self-care (01) ==
LOC: LBN 00:14
PROVIDERS: PCP Family Medicine; Visit Provider Surgery
DX: D64.9 Anemia, unspecified (principal); R79.89 Other specified abnormal findings of blood chemistry; K40.90 Unilateral inguinal hernia, without obstruction or gangrene, not specified as recurrent; Z87.19 Personal history of other diseases of the digestive system
CPT/HCPCS: 80053; 80061; 83036; 83540; 83550; 85025; 86140

== ENCOUNTER 2020-08-27 02:42 | Outpatient (CLI) | payer MEDICAID, SELFPAY ==
--- NOTE | 2020-08-27 07:15 | DI.US_ITS ---
EXAM: US ABDOMEN CLINICAL HISTORY: Elevated LFT's, Fatty Liver,ABD PAIN,R10.9,R79.89,K76.0 TECHNIQUE: Ultrasound of complete upper abdomen performed using standard protocol. COMPARISON: None FINDINGS: There is no ascites evident. LIVER: Liver is hyperechoic indicating steatosis. No discrete focal hepatic lesions GALLBLADDER/BILIARY: There are no gallstones. No gallbladder wall edema nor pericholecystic fluid. The common hepatic duct isnot dilated, measuring 3-4mm at the level of sharon hepatis. PANCREAS: There is no evidence of pancreatic mass nor dilatation of the pancreatic duct. SPLEEN: The spleen is not enlarged and there are no intrasplenic lesions evident. KIDNEYS:Kidneys exhibit normal size with no evidence of solid mass, calculus, nor hydronephrosis. No cortical cysts evident. ABDOMINAL AORTA: There is no evidence of abdominal aortic aneurysm. IVC: Normal diameter where visualized. IMPRESSION: 1. No evidence of cholelithiasis nor dilatation of the biliary tree. 2. Liver is hyperechoic indicating steatosis. Correlation with appropriate hepatic blood work is re commended. There are no discrete focal hepatic lesions evident. 3. There is no ascites. DATA REPOSITORY:
== END 2020-08-27 03:02 ==
PROVIDERS: PCP Family Medicine; Visit Provider Surgery
DX: R10.9 Unspecified abdominal pain (principal); K76.0 Fatty (change of) liver, not elsewhere classified; R79.89 Other specified abnormal findings of blood chemistry
CPT/HCPCS: 76700

== ENCOUNTER 2020-09-03 04:13 | Outpatient (CLI) | payer MEDICAID, SELFPAY ==
[2020-09-03 09:51] LABS: Source Nasal/Nares
[2020-09-03 15:16] LABS: COVID-19 PCR Negative (Negative)
== END 2020-09-03 04:14 | disposition home or self-care (01) ==
LOC: LBO 04:14
PROVIDERS: PCP Family Medicine; Visit Provider Surgery
DX: Z20.822 Contact with and (suspected) exposure to COVID-19 (principal); Z01.818 Encounter for other preprocedural examination
CPT/HCPCS: 87635

== ENCOUNTER 2020-09-04 07:51 | Day surgery (SDC) | payer MEDICAID, SELFPAY ==
[2020-09-04] VITALS (11 sets, daily range): BP systolic 109–132; BP diastolic 60–82; PULSE 60–85; RESP 10–16; TEMP 36.5–36.9; O2SAT 94–98
[2020-09-04] MEDS: Acetaminophen 500 MG TAB 1000 MG PO (08:32)
[2020-09-04] MEDS: Gabapentin 300 MG CAP PO (08:32)
[2020-09-04] MEDS: Lactated Ringers 1,000 ML 80 ML IV (08:40)
[2020-09-04] MEDS: Bupivacaine 0.25% Pres-Free 30 ML VIAL (10:20)
[2020-09-04] MEDS: Bupivacaine LIPOSOME/PF 133 MG/10 ML VIAL IJ ×2 (10:20→10:42)
[2020-09-04] MEDS: CLINDAMYCIN 600 MG/50 ML BAG 100 MG IVPB (10:25)
[2020-09-04] MEDS: Bupivacaine 0.25% Pres-Free 10 ML VIAL ×2 (10:42→10:55)
--- NOTE | 2020-09-04 12:04 | ROE_ITS ---
Date of service: 09/04/20 Time of Service: 12:05 Operative Note Operative Note DATE OF PROCEDURE: 09/04/20 PRE-OP DIAGNOSIS: right inguinal hernia POST-OP DIAGNOSIS: same (indirect x2 cord lipoma ) PROCEDURE: open repair w/ mesh SURGEON: Johana Fraire PET CARE TECHNICIAN: Aury Whitman ANESTHESIA TYPE: Local By Surgeon and Primary Nerve Block Refer to Anesthesia Record ESTIMATED BLOOD LOSS: 5 PATHOLOGY: none sent COMPLICATIONS: None Patient was transported to: PACU Implants: Medium Davol lightweight mesh patch/pulg. Procedure Description: INDICATIONS: The pt is here today for surgery regarding symptomatic --- inguinal hernia that has failed outpatient conservative medical management and he is here today for repair. Informed consent was obtained, explaining risks and benefits of the procedure including but not limited to bleeding, infection, pneumonia, blood clots, chronic pain, chronic numbness, damage to testicle resulting in removal, recurrence of hernia, reaction to Mesh necessitating removal, and other unforetold complications, and complications of anesthesia-which were addressed by the ACCOUNT ADMINISTRATOR. The patient is marked in preOp prior to the procedure DESCRIPTION OF PROCEDURE: The pt is then brought to the operative room suite. Anesthesia was administered per the Department of Anesthesia. A nerve block was performed by anesthesia under US guidance. The patient was prepped and draped in the usual sterile fashion using ChloraPrep scrub solution. Pause for the cause was done. He did receive preop IV antibiotics, and 30 mL of .25% Marcaine w/ epinephrine was used for local anesthetization. A #12 blade was used to make an incision over the external ring. Electrocautery used to provide hemostasis and dissect down to the fascia. The ext, oblique fascia was intact and open using [place]. The cord is elevated. The nerve was not identified. There is medium cord lipoma and this dissected off and is removed w/electrocautery. Electro-cautery is used to provide hemostasis. A Nora drain was placed around the cord to assist in mobilization. There was is medium hernia sac on the cord. There is no direct hernia pushing through the floor. The hernia sac is dissected off the cord using a combination of blunt dissection and electrocautery. Electrocautery is used to provide hemostasis. The sac contains omentum. This is ligated and tied off- the remnant is returned to the abdominal cavity. A medium sized plug is than inserted into the defect through the internal ring, and over sewn to tighten up the ring with 2-0 vicryl. Please see RN notes from Lot number of the [employer] mesh patch/plug. The cord structures are still able to freely move through the ring itself. The patch was then placed onto the floor, and using 2- 0 Vicryl, sewn into the pubic tubercle and the shelving portions of the inguinal ligament, in the standard Lichenstein fashion. The tails of the mesh are brought around the cord, sewn together w/ 2-0 Vicryl, and tucked under the external oblique. The wound was copiously irrigated. There was no bleeding noted. The drain was removed. All structures are returned to normal anatomical position. The nerve is not sewn into the mesh, nor caught up in any sutures. The external oblique is re-approximated using 2-0 vicryl in a running fashion. Deep tissue was approximated with 3-0 Vicryl in a running fashion, and skin was approximated with 4-0 Monocryl in a running subcuticular fashion. Skin glue and sterile dressings are applied. The patient tolerated the procedure without complications to recovery in stable condition. JOHANA FRAIRE, DO
--- NOTE | 2020-09-04 12:27 | PDOC.DSDIS_ITS ---
Discharge Plan Disposition Patient Disposition: HOME Condition: Good Discharge Details Reason For Visit: HERNIA Attending Provider: Johana Lamar Primary Care Provider: Nicola Jeffers Home Meds and New Rx's Prescriptions: No Action nicotine 14 mg/24 hr patch 24 hour 1 patch transdermal Q24H Qty: 28 RF: 0 methadone 10 mg/mL Syringe 130 mg PO DAILY RF: 0 Discharge Instructions Additional Instructions: Dr. Lamar HERNIA REPAIR ? POSTOPERATIVE INSTRUCTIONS Patients who have this type of surgery can usually be expected to return to work within two weeks and have minimal amounts of discomfort. ? ACTIVITY: The day of surgery should be spent resting. However, you can be up for short periods of time, I.E., going to the bathroom or kitchen. Avoid lifting or straining. On the day following surgery, you can be up and about as desired. ? LIFTING: Restrict your lifting to no more than five (5) pounds for the first week following surgery. For the second week after surgery, don?t lift more than ten pounds. We will decide when you are done with restrictions and when you can return to work, at your follow-up appointment. No sexual activity for two weeks. ? DIET: There are no dietary restrictions following surgery. However, you may want to start with small amounts of liquids to avoid nausea the day of surgery. ? INCISION CARE: You will notice purple skin glue closing the incision. Do not peel this off- it will wear off on its own. After 24 hours you may shower. The dressing may be replaced for comfort, but is not necessary. An ice bag may be a pplied to the incision for 72 hours following surgery. ? SIGNS OF INFECTION: It is not unusual to have some black and blue discoloration of the skin around the incision, but also scrotum and penis. It will slowly disappear. If you have any increased redness, drainage, fever (above 100 degrees), please contact your doctor for an examination. ? DISCOMFORT: You may expect to have some mild discomfort at the incision sight. If severe pain develops you should contact your doctor for further instructions. ? URINATION: Patients who have surgery occasionally have problems urinating. If you experience problems and are not able to urinate within 6 hours following your surgery, please call your doctor immediately or go to your nearest Emergency Room for evaluation. ? DRIVING: NO driving for three (3) days after surgery, or if you are still taking narcotic pain medication. ? MEDICATIONS: Alternate Tylenol 1000mg by mouth every 8 hours and Ibuprofen 600mg every 6 hours. Make sure you take ibuprofen with food and not on an empty stomach. Take the Tylenol and ibuprofen continuously for the first 72hrs- not just when you have pain. Use the tramadol for breakthrough pain. Use ICE! Twenty minutes on, and then off, continuously for the first 72hours. If you are taking narcotic pain medication, follow the instructions on the label and do not drive. Pain medications can make you very constipated. Make sure you are moving your bowels daily. If not, take Miralax, milk of magnesia or magnesium citrate. Anesthesia makes you very constipated. Take a dose of milk of magnesia the morning after surgery. ? REPORT: Unusual swelling, severe pain, unresolved nausea, signs of infection, or difficulty in urination to your surgeon. Follow up in clinic with Dr. Lamar in 1-2 weeks. [phone] Activity:: see above Remove Dressings/Wound Care:: 24 hours Shower/Bathe:: 24 hours Diet:: Normal Diet Discharge Orders Discharge Orders: Discharge Order (Routine); Ordered 09/04/20 Ordered By: Johana Lamar DS: Diagnosis Discharge Diagnosis (1) Indirect right inguinal hernia: Status: Acute
[2020-09-04] MEDS: Ketorolac 30 MG/ML VIAL IVP (12:39)
[2020-09-04] MEDS: traMADol 50 MG TAB PO (13:57)
== END 2020-09-04 15:00 | disposition home or self-care (01) ==
PROVIDERS: PCP Family Medicine; Visit Provider Surgery
PROC: (CPT 49505; principal; 2020-09-04 09:15)
DX: K40.90 Unilateral inguinal hernia, without obstruction or gangrene, not specified as recurrent (principal); D17.6 Benign lipomatous neoplasm of spermatic cord
CPT/HCPCS: 49505; 55520; C1781; J1100; J1885; J2001; J2250; J2405